=== PATIENT | male | born 1960 | race American Indian/Alaskan Native ===

== ENCOUNTER 2018-06-12 02:19 | Emergency (ER) | payer MEDICAID ==
[2018-06-12 03:16] LABS: Basophils # (Auto) 0.1 K/mm3 (0.0-0.1); Basophils % (Auto) 1.1 % (0.0-1.8); Eosinophils # (Auto) 0.3 K/mm3 (0.0-0.4); Hematocrit 45.1 % (35.5-45.6); Hemoglobin 15.7 gm/dl (11.8-15.2); Lymphocytes # (Auto) 2.3 K/mm3 (1.2-5.4); Lymphocytes % (Auto) 23.1 % (13.4-35.0); Mean Corpuscular HGB Conc 35 % (32-34); Mean Corpuscular Volume 100 fl (84-94); Monocytes # (Auto) 0.8 K/mm3 (0.0-0.8); Monocytes % (Auto) 8.4 % (0.0-7.3); Platelet Count 268 K/mm3 (140-440); Red Blood Count 4.49 M/mm3 (3.65-5.03); Red Cell Distribution Width 13.5 % (13.2-15.2)
--- NOTE | 2018-06-12 03:32 | Emergency Department Report ---
ED General Adult HPI - General Chief complaint: Psych Stated complaint: SUICIDAL IDEATIONS Time Seen by Provider: 06/12/18 03:22 Source: patient, RN notes reviewed Mode of arrival: Ambulatory Limitations: No Limitations - History of Present Illness Initial comments: This is a 57-year-old gentleman, not known to this provider previously, has a past medical history of arthritis, borderline personality, anxiety, depression, emphysema, high cholesterol, cannot recall all the names of his outpatient medications, presenting to the ER with a primary complaint of depression, suicidality, and feeling like he might cut his wrists. He does not have new different or worse and physical pain. He reports symptoms today are constant, does not radiate anywhere, and did not appear to have exacerbating or relieving factors. He is not experiencing hallucinations, he reports no intention to overdose, and he reports no access to guns or firearms. He does indicate that he might slit his wrist. -: Gradual Consistency: constant Improves with: none Worsens with: none - Related Data Allergies Allergy/AdvReac Type Severity Reaction Status Date / Time haloperidol [From Haldol] Allergy Hives Verified 06/12/18 02:41 nalbuphine [From Nubain] Allergy Hives Verified 06/12/18 02:41 ED Review of Systems ROS: Stated complaint: SUICIDAL IDEATIONS Other details as noted in HPI Constitutional: denies: fever Eyes: denies: eye discharge ENT: denies: epistaxis Respiratory: other (chronic shortness of breath, no other new or worsened or different) Cardiovascular: denies: chest pain Gastrointestinal: denies: abdominal pain Musculoskeletal: arthralgia, myalgia, other (chronic musculoskeletal pain). d enies: as per HPI Skin: denies: lesions Psychiatric: depression, suicidal thoughts. denies: homicidal thoughts ED Past Medical Hx - Past Medical History Previous Medical History?: Yes Hx Arthritis: Yes (osteo) Hx Psychiatric Treatment: Yes (borderline personality,anxiety, depression) Additional medical history: emphysema, diverticulitis,high CHO - Surgical History Past Surgical History?: Yes Additional Surgical History: ACL - Social History Smoking Status: Current Every Day Smoker Substance Use Type: Alcohol, Cocaine, Methamphetamines ED Physical Exam - General Limitations: No Limitations General appearance: alert, anxious - Head Head exam: Present: atraumatic, normocephalic - Eye Eye exam: Present: normal appearance, EOMI. Absent: nystagmus - ENT ENT exam: Present: normal exam, normal orophraynx, mucous membranes moist, normal external ear exam - Neck Neck exam: Present: normal inspection, full ROM. Absent: tenderness, meningismus - Respiratory Respiratory exam: Present: normal lung sounds bilaterally. Absent: respiratory distress - Cardiovascular Cardiovascular Exam: Present: regular rate, normal rhythm, normal heart sounds. Absent: bradycardia, tachycardia, irregular rhythm, systolic murmur, diastolic murmur, rubs, gallop - GI/Abdominal GI/Abdominal exam: Present: soft. Absent: distended, tenderness, guarding, rebound, rigid, pulsatile mass - Rectal Rectal exam: Present: deferred - Extremities Exam Extremities exam: Present: normal inspection, full ROM, other (2+ pulses in the bilateral upper extremities. Musculoskeletal compartments soft. There is no long bony tenderness. Walks with a steady gait. There is no palpable cord. There is negative Homans sign.). Absent: calf tenderness - Back Exam Back exam: Present: normal inspection, full ROM. Absent: tenderness, CVA tenderness (R), paraspinal tenderness, vertebral tenderness - Neurological Exam Neurological exam: Present: alert, oriented X3, CN II-XII intact, normal gait, other (Extraocular movements intact. Tongue midline. No facial droop. Facial sensation intact to light touch in the V1, V2, V3 distribution bilaterally. 5 and 5 strength in 4 extremities.. Sensation is intact to light touch in 4 extremities.). Absent: motor sensory deficit - Psychiatric Psychiatric exam: Present: depressed, anxious, suicidal ideation - Skin Skin exam: Present: warm, dry, intact, normal color. Absent: rash ED Course Vital Signs 06/12/18 06/12/18 02:37 03:49 Temperature 97.5 F L Pulse Rate 80 Respiratory 16 Rate Blood Pressure 145/90 O2 Sat by Pulse 98 98 Oximetry - Reevaluation(s) Reevaluation #1: 06/12/18 03:42 Differential diagnosis, including but not limited to: Mood disorder, depression, medical clearance for psychiatric placement Assessment and plan: 57-year-old gentleman with depression, suicidality, plan for self-harm. Patient afebrile, clinically sober, walks with a steady gait, has an unremarkable physical examination, screening laboratory studies thus far appeared to be unremarkable, no obvious external evidence of self-inflicted wounds. Patient is placed on a 1013. Explain significance of 1013 to the patient. Nursing team has been requested to reconcile patient's outpatient medications. We will obtain a psychiatric consultation. Reevaluation #2: 06/12/18 03:45 Glucose of 71 reviewed and appreciated, not actively asymptomatic, meal tray ordered, additional Accu-Cheks ordered at this point in time. Reevaluation #3: 06/12/18 04:05 Serum toxicology studies negative. Awaiting repeat Accu-Chek. ED Medical Decision Making - Lab Data Result diagrams: 06/12/18 02:52 06/12/18 02:52 Vital Signs 06/12/18 02:37 Temperature 97.5 F L Pulse Rate 80 Blood Pressure 145/90 O2 Sat by Pulse 98 Oximetry Lab Results 06/12/18 06/12/18 06/12/18 Range/Units 02:52 02:52 02:52 WBC 10.0 (4.5-11.0) K/mm3 RBC 4.49 (3.65-5.03) M/mm3 Hgb 15.7 H (11.8-15.2) gm/dl Hct 45.1 (35.5-45.6) % MCV 100 H (84-94) fl MCH 35 H (28-32) pg MCHC 35 H (32-34) % RDW 13.5 (13.2-15.2) % Plt Count 268 (140-440) K/mm3 Lymph % (Auto) 23.1 (13.4-35.0) % [place] % (Auto) 8.4 H (0.0-7.3) % Eos % (Auto) 3.0 (0.0-4.3) % Baso % (Auto) 1.1 (0.0-1.8) % Lymph # 2.3 (1.2-5.4) K/mm3 [place] # 0.8 (0.0-0.8) K/mm3 Eos # 0.3 (0.0-0.4) K/mm3 Baso # 0.1 (0.0-0.1) K/mm3 Seg Neutrophils % 64.4 (40.0-70.0) % Seg Neutrophils # 6.4 (1.8-7.7) K/mm3 Sodium 141 (137-145) mmol/L Potassium 4.1 (3.6-5.0) mmol/L Chloride 101.5 (98-107) mmol/L Carbon Dioxide 24 (22-30) mmol/L Anion Gap 20 mmol/L BUN 11 (9-20) mg/dL Creatinine 0.9 (0.8-1.5) mg/dL Estimated GFR > 60 ml/min BUN/Creatinine Ratio 12 % Glucose 71 L (75-100) mg/dL Calcium 9.5 (8.4-10.2) mg/dL Plasma/Serum Alcohol < 0.01 (0-0.07) % Critical care attestation.: If time is entered above; I have spent that time in minutes in the direct care of this critically ill patient, excluding procedure time. ED Disposition Clinical Impression: Medical clearance for psychiatric admission Disposition: [id number]/[id number] PSY HOSP/PSY UNIT Is pt being admited?: No Does the pt Need Aspirin: No Condition: Good Referrals: PRIMARY CARE, [Primary Care Provider] - 3-5 Days
[2018-06-12 03:33] LABS: BUN/Creatinine Ratio 12; Blood Urea Nitrogen 11 mg/dL (9-20); Calcium 9.5 mg/dL (8.4-10.2); Hemolysis Index 8
[2018-06-12] MEDS ORDERED: PROVENTIL IH PRN (03:43)
[2018-06-12] MEDS ORDERED: IBUPROFEN PO PRN (03:43)
[2018-06-12] MEDS: ATIVAN IM PRN ×2 (03:47→09:54)
[2018-06-12 03:59] LABS: Bilirubin,Urine NEG (Negative); Blood,Urine NEG (Negative); Color,Urine Yellow (Yellow); Protein,Urine <15 mg/dL mg/dL (Negative); Urobilinogen,Urine < 2.0 mg/dL (<2.0)
[2018-06-12 04:02] LABS: WBC,Urine < 1.0 /HPF (0.0-6.0)
[2018-06-12 04:08] LABS: Amphetamine Screen,Urine PRESUMPTIVE NEGATIVE; Benzodiazepines Screen,Urine PRESUMPTIVE NEGATIVE; Cannabinoid Screen,Urine PRESUMPTIVE NEGATIVE; Cocaine Screen,Urine PRESUMPTIVE NEGATIVE; Methadone Screen,Urine PRESUMPTIVE NEGATIVE; Opiate Screen,Urine PRESUMPTIVE NEGATIVE
--- NOTE | 2018-06-12 15:26 | Consultation ---
History of Present Illness - Reason for Consult Consult date: 06/12/18 Reason for consult: Mental Health Evaluation Requesting physician: JOLEEN CRESPO - Chief Complaint Chief complaint: "I want to " - History of Present Psychiatric Illness 57-year-old white male who presented to the ER for depression and SI's. Today the patient patient is calm during the assessment. He stated that he need help for his depression. He could not elaborate why he's depressed. He stated that he feel sad and hopeless. He stated that he was a patient at [facility] prior to coming to the [facility]. He stated that he would cut his wrist if he had the chance. He stated, "I'm done with life." He acknowledged a previous suicide attempt when asked. He denies HI's and AVH's. He denies erratic sleep and a poor appetite. He admitted to past recreational drug use alcohol consumption (etoh). Medications and Allergies Allergies Allergy/AdvReac Type Severity Reaction Status Date / Time haloperidol [From Haldol] Allergy Hives Verified 06/12/18 02:41 nalbuphine [From Nubain] Allergy Hives Verified 06/12/18 02:41 Active Meds: Active Medications Albuterol (Proventil) 2.5 mg IH Q4HR PRN PRN Reason: Wheezing Ibuprofen (Motrin) 400 mg PO Q6HR PRN PRN Reason: Pain , Severe (7-10) Lorazepam (Ativan) 2 mg IM Q4HR PRN PRN Reason: Agitation Last Admin: 06/12/18 09:54 Dose: 2 mg Documented by: Past psychiatric history - Past Medical History Past Medical History: COPD Past Surgical History: No surgical history - past Psychiatric treatment and history psychiatric treatment history: Hx of depression and substance abuse. Denies a fam psy hx. - Social History Social history: Lives alone Mental Status Exam - Vital signs Last Vital Signs Temp 98.4 F 06/12/18 14:49 Pulse 64 06/12/18 14:49 Resp 18 06/12/18 14:49 BP 108/73 06/12/18 14:49 Pulse Ox 99 06/12/18 14:49 - Exam Narrative exam: MSE: Appearance: calm, cooperative Behavior: regular eye contact Speech: regular rate and tone Mood: "depressed" Affect: flat Thought Process: circumstantial Thought Content: denies HI's and AVH's Motor Activity: sitting up in bed Cognition: A/O x 3 Insight: variable Judgment: poor Results Result Diagrams: 06/12/18 02:52 06/12/18 02:52 Abnormal lab results 06/12/18 06/12/18 06/12/18 Range/Units 02:52 02:52 02:52 Hgb (11.8-15.2) gm/dl MCV (84-94) fl MCH (28-32) pg MCHC (32-34) % [place] % (Auto) (0.0-7.3) % Glucose 71 L (75-100) mg/dL Salicylates < 0.3 L (2.8-20.0) mg/dL Acetaminophen < 5.0 L (10.0-30.0) ug/mL 06/12/18 Range/Units 02:52 Hgb 15.7 H (11.8-15.2) gm/dl MCV 100 H (84-94) fl MCH 35 H (28-32) pg MCHC 35 H (32-34) % [place] % (Auto) 8.4 H (0.0-7.3) % Glucose (75-100) mg/dL Salicylates (2.8-20.0) mg/dL Acetaminophen (10.0-30.0) ug/mL All other labs normal. Assessment and Plan Assessment and plan: Impression: MDD, Severe Type. Hx of Substance Abuse per the patient. Today the patient patient is calm during the assessment. The patient endorsed SI's with a plan. DDx: R/O Bipolar DO Recommendation/Plan: Continue 1013 and start Zoloft 50 mg PO HS for depression. Discussed possible suicidality/medication induced preston with the patient reference Zoloft. Dispo: The patient was referred to inpatient psy services. Staffed with Dr Peterson.
[2018-06-13] MEDS: ZOLOFT PO SCH ×2 (07:58→10:19)
[2018-06-13 11:48] VITALS: BP 109/68
--- NOTE | 2018-06-13 13:39 | Progress Note ---
Subjective - Reason for Consult Consult date: 06/13/18 Reason for consult: Psychiatry Follow-up - Chief Complaint Chief complaint: "I was upset yesterday" 57-year-old white male who presented to the ER for depression and SI's. Today the patient is calm and cooperative during the assessment. He stated that he was upset on how [place] and the transportation company "messed" him around reference getting him to [facility] in [place], [place]. He stated that he was never transported to [place], instead he was brought back to [place]. He stated that he was angry and stated being suicidal to get help for his depression and substance abuse when he arrived at the ER. He stated, "I just wanted some help, period." He denies SI/HI's and AVH's. He denies any side effects of his medication. Mental Status Exam - Vital signs Last Vital Signs Temp 98.3 F 06/13/18 08:00 Pulse 60 06/13/18 08:00 Resp 18 06/13/18 08:00 BP 109/68 06/13/18 08:00 Pulse Ox 99 06/13/18 08:00 - Exam Narrative exam: MSE: Appearance: calm, cooperative Behavior: regular eye contact Speech: regular rate and tone Mood: "better" Affect: congruent to mood Thought Process: logical Thought Content: denies SI/HI's and AVH's Motor Activity: sitting up in bed Cognition: A/O x 3 Insight: appropriate Judgment: appropriate Assessment and Plan Impression: MDD, Severe Type. Hx of Substance Abuse per the patient. Today the patient patient is calm and cooperative during the assessment. The patient is no threat to self. DDx: R/O Bipolar DO Recommendation/Plan: Rescind 1013 and continue Zoloft 50 mg PO HS for depression. Discussed possible suicidality/medication induced preston with the pat ient reference Zoloft. Dispo: Case Mgmt involvement. The patient will need assistance with placement. The patient can follow up with [facility] for outpatient/rehab services. Will staff with Dr Peterson.
--- NOTE | 2018-06-13 14:38 | Emergency Department Report ---
Blank Doc - Documentation Documentation: 1013 involuntary hold has been rescinded by psychiatric team. I arranged disc harge disposition.
== END 2018-06-13 15:25 | disposition home or self-care (01) ==
LOC: EEVIPCON 02:19 → ED 02:19
DX: F32.9 Major depressive disorder, single episode, unspecified (principal); F41.9 Anxiety disorder, unspecified; M19.90 Unspecified osteoarthritis, unspecified site; E78.00 Pure hypercholesterolemia, unspecified; F17.200 Nicotine dependence, unspecified, uncomplicated; F15.90 Other stimulant use, unspecified, uncomplicated; F14.90 Cocaine use, unspecified, uncomplicated; F10.10 Alcohol abuse, uncomplicated; Z88.8 Allergy status to other drugs, medicaments and biological substances
CPT/HCPCS: 36415; 80048; 80307; 81001; 82962; 85025; 96372; 99284; G0480; J2060; 80320